=== PATIENT | male | born 1980 ===

== ENCOUNTER 2017-06-26 08:30 | Emergency (ER) | payer OTHER, SELFPAY ==
[2017-06-26 08:36] VITALS: BP 125/70; PULSE 85; RESP 16; TEMP 97.5; O2SAT 98
[2017-06-26 08:37] VITALS: BMI 28.8
--- NOTE | 2017-06-26 08:51 | ED PDOC ---
HPI: Back Time Seen by Provider: 06/26/17 08:38 Chief Complaint (Provider): Back pain History Per: Patient, [employer]cher History/Exam Limitations: no limitations Current Symptoms Are (Timing): Still Present Additional Complaint(s): 36 y/o male presents to the emergency department accompanied with a friend with lower back pain x2 months. 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 Pain worsens with bending and movement. Reports taking Motrin and other pain relievers this week for pain. Denies radiation of pain down to the legs or anywhere else, numbness, tingling, abdominal pain, urinary symptoms , constipation, headache, fever, chills, vision changes, and shortness of breath. No incontinence. Past Medical History Reviewed: Historical Data, Nursing Documentation, Vital Signs Vital Signs: Last Vital Signs Temp 97.5 F L 06/26/17 08:36 Pulse 85 06/26/17 08:36 Resp 16 06/26/17 08:36 BP 125/70 06/26/17 08:36 Pulse Ox 98 06/26/17 08:36 - Medical History PMH: No Chronic Diseases - Surgical History Surgical History: No Surg Hx - Family History Family History: States: Unknown Family Hx - Home Medications Home Medications: Ambulatory Orders Medication Instructions Recorded Atropine/Hyoscyamine [] 1 tab PO TID PRN #12 tab 10/03/16 Famotidine [Pepcid] 40 mg PO DAILY #10 tab 10/03/16 Omeprazole 40 mg PO DAILY #30 tab 10/03/16 Sucralfate [Carafate] 1 gm PO BID #12 tablet 10/03/16 Ibuprofen [Motrin] 600 mg PO TID 7 Days tab 06/26/17 - Allergies Allergies/Adverse Reactions: Allergies Allergy/AdvReac Type Severity Reaction Status Date / Time No Known Allergies Allergy Verified 10/03/16 09:46 Review of Systems Constitutional: Negative for: Fever, Chills, Weakness Eyes: Negative for: Vision Change Respiratory: Negative for: Shortness of Breath Gastrointestinal: Negative for: Abdominal Pain, Constipation Genitourinary Male: Negative for: Dysuria, Frequency, Incontinence, Hematuria Musculoskeletal: Positive for: Back Pain (Lower region). Negative for: Leg Pain (Radiation down to the legs) Neurological: Negative for: Numbness (tingling), Headache Physical Exam - Reviewed Nursing Documentation Reviewed: Yes Vital Signs Reviewed: Yes - Physical Exam Appears: Positive for: Well, Non-toxic, No Acute Distress Head Exam: Positive for: ATRAUMATIC, NORMAL INSPECTION, NORMOCEPHALIC Skin: Positive for: Normal Color, Warm, Dry Neck: Positive for: Normal, Supple Cardiovascular/Chest: Positive for: Regular Rate, Rhythm. Negative for: Murmur Respiratory: Positive for: Normal Breath Sounds. Negative for: Accessory Muscle Use, Respiratory Distress Gastrointestinal/Abdominal: Positive for: Normal Exam, Soft. 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 Negative for: Normal Inspection Extremity: Positive for: Normal ROM. Negative for: Tenderness, Pedal Edema Neurologic/Psych: Positive for: Alert, Oriented (x3) - ECG O2 Sat by Pulse Oximetry: 98 (RA) Pulse Ox Interpretation: Normal - Radiology X-Ray: Interpreted by Me, Viewed By Me X-Ray Interpretation: No Acute Disease - Progress ED Course And Treament: 918: Stable. AAOx3. Pain free. Tolerated PO. Ambulated with no issues. Medical Decision Making Medical Decision Making: Time: 08:47 Initial Impression: Back pain Initial Plan: --Lumbar Spine x-ray --Tylenol 975 mg PO --Toradol 15 mg IM --Reevaluation Scribe Attestation: Documented by Stefani Bower, acting as a scribe for Ramez Cervantes MD. Provider Scribe Attestation: All medical record entries made by the Scribe were at my direction and personally dictated by me. I have reviewed the chart and agree that the record accurately reflects my personal performance of the history, physical exam, medical decision making, and the department course for this patient. I have also personally directed, reviewed, and agree with the discharge instructions and disposition. Disposition - Clinical Impression Clinical Impression: Low back pain - Patient ED Disposition Is Patient to be Admitted: No Counseled Patient/Family Regarding: Studies Performed, Diagnosis, Need For Followup, Rx Given - Disposition Referrals: [facility] [Outside] - 06/28/17 Disposition: Routine/Home Disposition Time: 09:19 Condition: STABLE Additional Instructions: Return if not better in 3 days. Prescriptions: Ibuprofen [Motrin] 600 mg PO TID 7 Days tab Instructions: Acute Low Back Pain (ED)
--- NOTE | 2017-06-26 09:50 | RAD ---
PROCEDURE: Radiographs of the Lumbar Spine. HISTORY: back pain COMPARISON: No prior. FINDINGS: BONES: Normal alignment. No listhesis. No fracture. Five views were performed. DISC SPACES: Unremarkable. OTHER FINDINGS: Minimal endplate changes are noted. No presacral masses are seen. Visualized sacroiliac joints are unremarkable. No pars defects are identified. Pedicles are normal in outline. IMPRESSION: Unremarkable radiographs of the lumbar spine.
== END 2017-06-26 09:34 | disposition home or self-care (01) ==
LOC: H.ER 08:30
DX: M54.5 Low back pain (principal)
CPT/HCPCS: 72114; 96372; 99281; J1885

== ENCOUNTER 2017-08-30 09:22 | Emergency (ER) | payer SELFPAY ==
[2017-08-30 09:32] VITALS: BP 129/69; PULSE 77; RESP 20; TEMP 98.4; O2SAT 99
[2017-08-30 09:33] VITALS: BMI 25.9
--- NOTE | 2017-08-30 09:57 | ED PDOC ---
HPI: Back Time Seen by Provider: 08/30/17 09:39 Chief Complaint (Nursing): Back Pain Chief Complaint (Provider): Back Pain History Per: Patient History/Exam Limitations: no limitations Onset/Duration Of Symptoms: Days (x6 months) Current Symptoms Are (Timing): Still Present Additional Complaint(s): Hector Baca is a 36 year old male presenting to the ED for an evaluation of non-radiating, left sided lower back pain occurring for 6 months prior to arrival. The patient states this pain is not associated with weakness or paresthesia. He denies any urinary symptoms. PMD: None provided Past Medical History Reviewed: Historical Data, Nursing Documentation, Vital Signs Vital Signs: Last Vital Signs Temp 98.4 F 08/30/17 09:31 Pulse 77 08/30/17 09:31 Resp 20 08/30/17 09:31 BP 129/69 08/30/17 09:31 Pulse Ox 99 08/30/17 09:31 - Medical History PMH: No Chronic Diseases - Surgical History Surgical History: No Surg Hx - Family History Family History: States: No Known Family Hx - Social History Current smoker - smoking cessation education provided: No Ex-Smoker (has not smoked in the last 12 months): No Alcohol: None Drugs: Denies - Home Medications Home Medications: Ambulatory Orders Medication Instructions Recorded Atropine/Hyoscyamine [] 1 tab PO TID PRN #12 tab 10/03/16 Famotidine [Pepcid] 40 mg PO DAILY #10 tab 10/03/16 Omeprazole 40 mg PO DAILY #30 tab 10/03/16 Sucralfate [Carafate] 1 gm PO BID #12 tablet 10/03/16 Ibuprofen [Motrin] 600 mg PO TID 7 Days tab 06/26/17 Cyclobenzaprine [Cyclobenzaprine 10 mg PO TID #10 tab 08/30/17 HCl] Methylprednisolone [Medrol Dose 4 mg PO DAILY #21 tab 08/30/17 Pack (21 tabs)] - Allergies Allergies/Adverse Reactions: Allergies Allergy/AdvReac Type Severity Reaction Status Date / Time No Known Allergies Allergy Verified 10/03/16 09:46 Review of Systems ROS Statement: Except As Marked, All Systems Reviewed And Found Negative Genitourinary Male: Negative for: Dysuria, Frequency, Incontinence, Hematuria Musculoskeletal: Positive for: Back Pain (lower) Neurological: Negative for: Weakness (or paresthesia) Physical Exam - Reviewed Nursing Documentation Reviewed: Yes Vital Signs Reviewed: Yes - Physical Exam Appears: Positive for: Non-toxic, No Acute Distress Head Exam: Positive for: ATRAUMATIC, NORMOCEPHALIC Skin: Positive for: Normal Color, Warm, Dry Eye Exam: Positive for: Normal appearance, EOMI ENT: Positive for: Normal ENT Inspection Neck: Positive for: Normal, Painless ROM Cardiovascular/Chest: Positive for: Regular Rate, Rhythm, Chest Non Tender Respiratory: Positive for: Normal Breath Sounds. Negative for: Respiratory Distress Back: Positive for: Muscle Spasm (left parasacral spasm and tenderness). Negative for: L CVA Tenderness, R CVA Tenderness, Vertebral Tenderness (no midline spinal tenderness or deformity) Extremity: Positive for: Normal ROM. Negative for: Deformity Neurologic/Psych: Positive for: Alert, Oriented (x3). Negative for: Motor/ Sensory Deficits (or focal deficits) - ECG O2 Sat by Pulse Oximetry: 99 (RA) Pulse Ox Interpretation: Normal Medical Decision Making Medical Decision Making: Time: 09:39 Impression: Left sided lower back pain Plan: * Toradol 30 mg IM * [RAD] LS Spine AP/LAT * Reevaluation Scribe Attestation: Documented by Emelyn Palacios, acting as a scribe for Bora Acosta MD. Provider Scribe Attestation: All medical record entries made by the Scribe were at my direction and personally dictated by me. I have reviewed the chart and agree that the record accurately reflects my personal performance of the history, physical exam, medical decision making, and the department course for this patient. I have also personally directed, reviewed, and agree with the discharge instructions and disposition. Disposition - Clinical Impression Clinical Impression: Back strain - Patient ED Disposition Is Patient to be Admitted: No Counseled Patient/Family Regarding: Studies Performed, Diagnosis, Need For Followup, Rx Given - Disposition Referrals: Fabio Bynum III, MD [Staff Provider] - [facility] [Outside] Disposition: Routine/Home Disposition Time: 10:04 Condition: FAIR Prescriptions: Cyclobenzaprine [Cyclobenzaprine HCl] 10 mg PO TID #10 tab Methylprednisolone [Medrol Dose Pack (21 tabs)] 4 mg PO DAILY #21 tab Instructions: Chronic Back Pain (ED) Forms: [employer] ([place])
--- NOTE | 2017-08-30 11:54 | RAD ---
PROCEDURE: Radiographs of the Lumbar Spine. HISTORY: back pain COMPARISON: Comparison made with radiographs of the lumbar spine 06/26/2017 FINDINGS: BONES: No acute compression fractures nor retropulsed fragments. Vertebral bodies exhibit normal stature and alignment. Facets normally aligned. DISC SPACES: Very minor multilevel degenerative spondylosis. Disc space heights are maintained. Small marginal anterior osteophyte formation seen at at several levels. . OTHER FINDINGS: None. IMPRESSION: No acute fractures. Minimal multilevel degenerative spondylosis
== END 2017-08-30 10:56 | disposition home or self-care (01) ==
LOC: H.ER 09:22
DX: S39.012A Strain of muscle, fascia and tendon of lower back, initial encounter (principal); Z87.891 Personal history of nicotine dependence
CPT/HCPCS: 72100; 96372; 99282; J1885